=== PATIENT | female | born 1980 | race African-American/Black ===

== ENCOUNTER 2025-02-14 15:59 | Observation (INO) ==
--- NOTE | 2025-02-14 17:37 | Emergency Department Note ---
History of Present Illness General Chief complaint: Infection Stated complaint: INFECTION, REF BY Time Seen by Provider: 02/14/25 17:25 History of Present Illness Maximum Pain Intensity: 9 This is a 44-year-old female who presents to the emergency department via private vehicle with complaints of "infection, referred by ". The patient notes that she is experiencing right low back/flank pain. She relates this to the same pain she experienced when she had pyelonephritis. Patient notes that she was recently on 2 different antibiotics and is currently still on antibiotic for treatment of UTI. She notes fever at home 100.2 F. She notes she feels warm. She notes headache, neck pain and overall feeling some body aches. She denies any dysuria. Current pain 02/14. Home Medications Medication Instructions Recorded Confirmed Type Women's Probiotic Gummy 1 tab PO DAILY 11/09/24 02/14/25 History diazepam 2 mg tablet 2 mg PO BID PRN ANXIETY NEEDED 11/09/24 02/14/25 History ibuprofen 200 mg tablet (Advil) 400 - 600 mg PO DIRECTED PRN 11/09/24 02/14/25 History PAIN/FEVER magnesium oxide 200 mg PO DAILY 11/09/24 02/14/25 History norethindrone (contraceptive) 0.35 0.35 mg PO QDL #84 tabs 12/13/24 02/14/25 Rx mg tablet celecoxib 100 mg capsule (Celebrex) 100 mg PO BID #60 caps 02/12/25 02/14/25 Rx nitrofurantoin 100 mg PO Q12H 10 days #20 caps 02/12/25 02/14/25 Rx monohydrate/macrocrystals 100 mg capsule (Macrobid) Allergies Allergy/AdvReac Type Severity Reaction Status Date / Time No Known Allergies Allergy Verified 02/12/25 14:35 Past Med/Surg History Problem List (Updated 02/14/25 @ 21:51 by Antonio Brantley PA-C) Acute right-sided back pain (Acute) Duplicated collecting system Recurrent UTI (Acute) Medical History Hepatic cyst Pyelonephritis of right kidney Surgical History History of cystoscopy (08/2020) History of left breast biopsy cyst removal--benign History of wisdom tooth extraction History of colonoscopy S/P section 2016 Family History Aunt Breast cancer Aunt Breast cancer Mother Ovarian cancer Heart disease Hypertension Sister Brain cancer Uncle Brain cancer Lung cancer Other No family history of adverse response to anesthesia Denies family history of Prostate cancer Myocardial infarction Colorectal cancer Social History Smoking Status: Current every day smoker Tobacco Type: Cigarettes Age Started Using Tobacco: 15; packs per day: 1; Cigarettes Per Day: 1 (advised on policy); Second Hand Exposure: No (self); Do You Dip or Chew Tobacco: No; Hx Alcohol Use: No Hx Substance Use: No Preferred Language: Austrian Communication Ability: Effective Visual Impairment: No Limitations Hearing Ability: Normal Advisory Internship Required: No Beliefs That Will Affect Care: None marital status: Current Living Situation: Spouse current occupational status: employed 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 How many Children do You have: 1 Feels Safe at Home: Yes Childhood Exposure to Second-Hand Smoke: Yes Diet: regular caffeine: Yes during the past year weight has: remained stable Dental Care, Regularly: Yes Physical Activity Frequency: Daily Physical Activity Frequency Comment: busy life Seatbelt Use: always Sunscreen Use: Yes Assistive Devices: None Review of Systems A total of 10 systems reviewed and were otherwise negative Physical Exam Vital Signs Vital Signs - 24 hr 02/14/25 16:12 02/14/25 18:25 02/14/25 19:29 Temperature 36.3 C L Temperature Source Temporal Artery Scan Pulse Rate 88 Pulse Rate [Finger] 86 87 Respiratory Rate 18 16 16 Blood Pressure 117/74 Blood Pressure [Right Arm] 127/80 121/76 Blood Pressure Mean 88 Blood Pressure Mean [Right Arm] 95 91 Pulse Oximetry 100 100 97 Oxygen Delivery Method Room Air Room Air Sepsis Recent Fever Within 48 Hours Yes Sepsis New/Unexplained Change in Mental Status No Sepsis Action Taken by Nursing No Action Required 02/14/25 21:01 Temperature Temperature Source Pulse Rate Pulse Rate [Finger] 78 Respiratory Rate 16 Blood Pressure Blood Pressure [Right Arm] 118/69 Blood Pressure Mean Blood Pressure Mean [Right Arm] 85 Pulse Oximetry 100 Oxygen Delivery Method Room Air Sepsis Recent Fever Within 48 Hours Sepsis New/Unexplained Change in Mental Status Sepsis Action Taken by Nursing VITAL SIGNS - Vital signs and nursing notes were reviewed. Stable and afebrile. GENERAL - 44-year-old female appearing her stated age who is in no acute distress but appears to be in pain. Communicates well with provider and answers questions appropriately. SKIN - Without rashes. HEAD - NC/AT. EYES - Sclera anicteric. NECK - No nuchal rigidity. LUNGS - CTA CARDIAC - RRR ABDOMEN - Abdominal contour normal without pulsations or visible masses. BS normoactive all four quadrants. No tenderness, palpable masses, hepatosplenomegaly, or ascites noted. EXTREMITIES - No clubbing or peripheral cyanosis. +5/5 strength noted in UE/LE bilaterally. NEUROLOGIC - Cranial nerves II through XII grossly intact. PSYCH -alert, oriented and pleasant on exam Course Administered Medications Discontinued Medications Acetaminophen (Acetaminophen 325 Mg Tab) 650 mg PO NOW STA Stop: 02/14/25 18:38 Last Admin: 02/14/25 18:43 Dose: 650 mg Documented By: VIVEK Sodium Chloride (Nss) 1,000 mls @ 999 mls/hr IV .Q1H1M ONE Stop: 02/14/25 19:37 Last Infusion: 02/14/25 20:01 Dose: Infused Documented By: Admin: 02/14/25 18:45 Dose: 999 mls/hr Documented By: VIVEK Ceftriaxone Sodium (Rocephin) 2,000 mg in 50 mls @ 100 mls/hr IV NOW STA Stop: 02/14/25 20:08 Last Infusion: 02/14/25 21:22 Dose: Infused Documented By: Admin: 02/14/25 20:04 Dose: 100 mls/hr Documented By: RIKI Ioversol (Optiray 320 100ml) 90 ml IV ONCE ONE Stop: 02/14/25 20:55 Last Admin: 02/14/25 20:54 Dose: 90 ml Documented By: XIOMARA Medical Decision Making Laboratory Data 02/14/25 17:07 02/14/25 17:07 Lab Results 02/14/25 02/14/25 02/14/25 Range/Units 17:07 17:16 18:33 WBC 16.25 H (4.8-10.8) K/ul RBC 4.36 (4.20-5.40) M/uL Hgb 13.3 (12.0-16.0) g/dl Hct 40.3 (37.0-47.0) % MCV 92.4 (80.0-100.0) fL MCH 30.5 (25.0-34.0) pg MCHC 33.0 (32.0-36.0) g/dL RDW Std Deviation 41.1 (36.4-46.3) fL RDW Coeff of Sophie 12.1 (11.5-14.5) % Plt Count 252 (130-400) K/uL MPV 10.3 (9.4-12.4) fL Immature Gran % (Auto) 0.4 % Neut % (Auto) 87.8 % Lymph % (Auto) 5.8 % [place] % (Auto) 3.5 % Eos % (Auto) 2.2 % Baso % (Auto) 0.3 % Neut # (Auto) 14.27 H (1.40-6.50) K/uL Lymph # (Auto) 0.95 L (1.20-3.40) K/uL [place] # (Auto) 0.57 (0.11-0.59) K/uL Eos # (Auto) 0.35 (0.00-0.50) K/uL Baso # (Auto) 0.05 (0.00-0.20) K/uL Immature Gran # (Auto) 0.06 (0.01-0.20) K/uL Sodium 135 L (136-145) mmol/L Potassium 4.0 (3.5-5.1) mmol/L Chloride 102 (98-107) mmol/L Carbon Dioxide 25 (21-32) mmol/L Anion Gap 8 (3-11) BUN 13 (6-23) mg/dl Creatinine 0.80 (0.6-1.2) mg/dl Est Cr Clr Drug Dosing 83.6 ml/min eGFR 91.97 BUN/Creatinine Ratio 16.3 (10-20) Glucose 105 H (70-99(Fasting)) mg/dl Lactate 0.7 (0.4-2.0) mmol/L Calcium 9.3 (8.6-10.3) mg/dl Total Bilirubin 0.8 (0.2-1.0) mg/dl AST 18 (13-39) U/L ALT 12 (7-52) U/L Alkaline Phosphatase 41 (34-104) U/L Total Protein 7.7 (6.0-8.3) gm/dl Albumin 4.7 (3.4-5.0) gm/dl Globulin 3.0 (2.5-4.0) gm/dl Albumin/Globulin Ratio 1.6 (0.9-2) Procalcitonin 0.09 (0-0.5) ng/ml Urine Color Urine Appearance (Clear) Urine pH (4.5-7.5) Ur Specific House (1.000-1.030) Urine Protein (Negative) Urine Glucose (UA) (Negative) Urine Ketones (Negative) Urine Blood (Negative) Urine Nitrite (Negative) Urine Bilirubin (Negative) Urine Urobilinogen (Negative) Ur Leukocyte Esterase (Negative) Urine Test (Negative) Urine Comment Anaplasma Smear See Comment Lyme Disease Screen Negative (Negative) SARS-CoV-2 (PCR) NEGATIVE (Negative) Influenza Type A (PCR) Negative (Neg) Influenza Type B (PCR) Negative (Neg) RSV (RT-PCR) Negative (Neg) 02/14/25 Range/Units 18:53 WBC (4.8-10.8) K/ul RBC (4.20-5.40) M/uL Hgb (12.0-16.0) g/dl Hct (37.0-47.0) % MCV (80.0-100.0) fL MCH (25.0-34.0) pg MCHC (32.0-36.0) g/dL RDW Std Deviation (36.4-46.3) fL RDW Coeff of Sophie (11.5-14.5) % Plt Count (130-400) K/uL MPV (9.4-12.4) fL Immature Gran % (Auto) % Neut % (Auto) % Lymph % (Auto) % [place] % (Auto) % Eos % (Auto) % Baso % (Auto) % Neut # (Auto) (1.40-6.50) K/uL Lymph # (Auto) (1.20-3.40) K/uL Y[place] # (Auto) (0.11-0.59) K/uL Eos # (Auto) (0.00-0.50) K/uL Baso # (Auto) (0.00-0.20) K/uL Immature Gran # (Auto) (0.01-0.20) K/uL Sodium (136-145) mmol/L Potassium (3.5-5.1) mmol/L Chloride (98-107) mmol/L Carbon Dioxide (21-32) mmol/L Anion Gap (3-11) BUN (6-23) mg/dl Creatinine (0.6-1.2) mg/dl Est Cr Clr Drug Dosing ml/min eGFR BUN/Creatinine Ratio (10-20) Glucose (70-99(Fasting)) mg/dl Lactate (0.4-2.0) mmol/L Calcium (8.6-10.3) mg/dl Total Bilirubin (0.2-1.0) mg/dl AST (13-39) U/L ALT (7-52) U/L Alkaline Phosphatase (34-104) U/L Total Protein (6.0-8.3) gm/dl Albumin (3.4-5.0) gm/dl Globulin (2.5-4.0) gm/dl Albumin/Globulin Ratio (0.9-2) Procalcitonin (0-0.5) ng/ml Urine Color Yellow Urine Appearance Clear (Clear) Urine pH 6.0 (4.5-7.5) Ur Specific House 1.003 (1.000-1.030) Urine Protein Negative (Negative) Urine Glucose (UA) Negative (Negative) Urine Ketones 1+ H (Negative) Urine Blood Negative (Negative) Urine Nitrite Negative (Negative) Urine Bilirubin Negative (Negative) Urine Urobilinogen Negative (Negative) Ur Leukocyte Esterase Negative (Negative) Urine Test Negative (Negative) Urine Comment Anaplasma Smear Lyme Disease Screen (Negative) SARS-CoV-2 (PCR) (Negative) Influenza Type A (PCR) (Neg) Influenza Type B (PCR) (Neg) RSV (RT-PCR) (Neg) Imaging Data Radiologist's Impression: Renal Ultrasound 02/14/25 17:39 Clinical history: Right flank pain Technique: Renal sonography was performed Findings: The kidneys are of normal size and echogenicity. The right kidney measures 10.9 cm in length and the left kidney measures 11.1 cm in length. There is no hydronephrosis or visualized hydroureter. No definite renal calculus or mass is seen. There is a 1 cm right renal cyst The urinary bladder has a pre-voiding volume of 359 cc with 31 cc of postvoid residual. Bilateral ureteral jets were seen. Impression: Small right renal cyst Electronically signed by Rakan Hinds 02-14-2025 6:54 PM EXAM: CT Abdomen and Pelvis With Intravenous Contrast CLINICAL HISTORY: Reason for exam: R flank pain/back pain, hx pyelonephritis. TECHNIQUE: Axial computed tomography images of the abdomen and pelvis with intravenous contrast. CTDI is 13 mGy and DLP is 621 mGy-cm. Automated exposure control was utilized for the study. A dose lowering technique was utilized adhering to the principles of ALARA. CONTRAST: Patient received 90 cc opti 320 of IV contrast COMPARISON: No relevant prior studies available. FINDINGS: Lung bases: Unremarkable. ABDOMEN: Liver: Unremarkable. No mass. Gallbladder and bile ducts: Contracted gallbladder. No calcified stones. No ductal dilation. Pancreas: Unremarkable. No mass. No ductal dilation. Spleen: Unremarkable. No splenomegaly. Adrenals: Unremarkable. No mass. Kidneys and ureters: Symmetric renal enhancement. No hydronephrosis. No CT evidence of pyelonephritis. Subcentimeter right renal cyst; no follow-up indicated. Stomach and bowel: No bowel obstruction. Increased colonic stool suggesting constipation. No mechanical bowel obstruction. No mucosal thickening. PELVIS: Appendix: Normal appendix. Bladder: Unremarkable. No mass. Reproductive: Unremarkable as visualized. ABDOMEN and PELVIS: Intraperitoneal space: Unremarkable. No free fluid or free air. Bones/joints: No acute fracture. No dislocation. Soft tissues: Unremarkable. Vasculature: Unremarkable. No abdominal aortic aneurysm. Lymph nodes: Unremarkable. No enlarged lymph nodes. IMPRESSION: Increased colonic stool suggesting constipation. Radiologist: Gustavo Hernandez M.D. Electronically Signed: 02/14/25 21:46 [facility] Narrative Patient was seen and evaluated as above in the [facility] area followed by room A10. Review was performed of nursing notes and vital signs. I did review pertinent previous visits and patient history. After obtaining a thorough history and physical examination the above work up was performed. Patient presents to us today for evaluation of right flank/low back pain with associated body aches and fever. The patient is afebrile on arrival but notes fever at home. She states these symptoms are identical to when she had pyelonephritis earlier this year. I did review that visit and the patient did have pyelonephritis by CT imaging. Patient did note she did well with IV antibiotics. Options of care were discussed with the patient. IV access was established. Labs were drawn. There is leukocytosis 16.25. No anemia. Mild hyponatremia 135. No evidence of kidney or liver failure. Procalcitonin within normal range making sepsis less likely. Lactate within normal range as well. Urinalysis without evidence of UTI. RSV, influenza and COVID testing negative. Lyme screen negative. Anaplasma/Babesia smear negative. Send out DNA testing for Anaplasma Babesia currently pending. I did order IV ceftriaxone for coverage of the upper urinary tract despite urine findings here today noting the patient's symptoms and presentation with associated leukocytosis. Ultrasound of the renal area overall negative for acute process, there is note of a small right renal cyst. Case discussed with the hospitalist service. Hospitalist service did recommend a CT scan of the abdomen/pelvis. This was added after reviewing benefit versus risk with the patient. Result as above. Findings suggest constipation however I do not believe this is causing the patient's febrile state and leukocytosis. GCS: 15 In the evaluation and treatment of this patient the following differential diagnoses were entertained: UTI, pyelonephritis, diverticulitis, acute cholecystitis, pancreatitis, among others Impression & Plan Recurrent UTI, Acute right-sided back pain Discharge Plan Visit Data Chief Complaint: Infection Stated Complaint: INFECTION, REF BY ED Provider: Milo Graham ED Midlevel Provider: Antonio Brantley Discharge Problem: Recurrent UTI, Acute right-sided back pain Patient Disposition: Admitted As Inpatient Condition: Good Forms Stand Alone Forms: [facility] Prescriptions Prescriptions: No Action norethindrone (contraceptive) 0.35 mg tablet 0.35 mg PO QDL Qty: 84 1RF Rx Instructions: start day 1 of menstrual cycle nitrofurantoin monohyd/m-cryst [Macrobid] 100 mg capsule 100 mg PO Q12H 10 Days Qty: 20 0RF Rx Instructions: must administer with a meal/food celecoxib [Celebrex] 100 mg capsule 100 mg PO BID Qty: 60 5RF diazepam 2 mg tablet 2 mg PO BID PRN (Reason: ANXIETY NEEDED) ibuprofen [Advil] 200 mg Tablet 400 - 600 mg PO DIRECTED PRN (Reason: PAIN/FEVER) magnesium oxide 200 mg magnesium Tablet,Chewable 200 mg PO DAILY Women's Probiotic Gummy 1 tab PO DAILY Referrals Referrals: Dany Albert III, CRNP [Primary Care Provider] -
[2025-02-14 17:54] LABS: Hematocrit (blood only) 40.3 % (37.0-47.0); Hemoglobin 13.3 g/dl (12.0-16.0); Immature Granulocytes # (auto) 0.06 K/uL (0.01-0.20); Immature Granulocytes % (auto) 0.4 %; Mean Corpuscular Hemoglobin 30.5 pg (25.0-34.0); Mean Corpuscular Volume 92.4 fL (80.0-100.0); Platelet Count 252 K/uL (130-400); RDW Standard Deviation 41.1 fL (36.4-46.3); Red Blood Count 4.36 M/uL (4.20-5.40); White Blood Count 16.25 K/ul (4.8-10.8)
[2025-02-14 18:08] LABS: Influenza A virus by PCR Negative (Neg); Influenza B virus by PCR Negative (Neg); SARS CoV2 RNA(COVID-19) Ceph NEGATIVE (Negative)
[2025-02-14 18:10] LABS: Alanine Aminotransferase 12.0 U/L (7-52); Albumin Globulin Ratio 1.6 (0.9-2); Alkaline Phosphatase 41.0 U/L (34-104); Anion Gap 8.0 (3-11); Bilirubin,Total 0.8 mg/dl (0.2-1.0); Blood Urea Nitrogen 13.0 mg/dl (6-23); Calcium 9.3 mg/dl (8.6-10.3); Carbon Dioxide 25.0 mmol/L (21-32); Chloride 102.0 mmol/L (98-107); Creatinine Clr Calc Pharmacy 83.6 ml/min; Globulin 3.0 gm/dl (2.5-4.0); Glucose 105.0 mg/dl (70-99(Fasting)); Potassium 4.0 mmol/L (3.5-5.1); Sodium 135.0 mmol/L (136-145); Total Protein 7.7 gm/dl (6.0-8.3)
[2025-02-14 18:34] LABS: Procalcitonin 0.09 ng/ml (0-0.5)
[2025-02-14] MEDS: ACETAMINOPHEN 325 MG TAB PO STA (18:43)
[2025-02-14] MEDS: SODIUM CHLORIDE 0.9% 1,000 ML IV ONE (18:45)
--- NOTE | 2025-02-14 18:55 | Ultrasound Report ---
Clinical history: Right flank pain Technique: Renal sonography was performed Findings: The kidneys are of normal size and echogenicity. The right kidney measures 10.9 cm in length and the left kidney measures 11.1 cm in length. There is no hydronephrosis or visualized hydroureter. No definite renal calculus or mass is seen. There is a 1 cm right renal cyst The urinary bladder has a pre-voiding volume of 359 cc with 31 cc of postvoid residual. Bilateral ureteral jets were seen. Impression: Small right renal cyst Electronically signed by Rakan Hinds 02-14-2025 6:54 PM
[2025-02-14 18:59] LABS: Lyme Screen Rflx Confirmation Negative (Negative)
[2025-02-14 19:08] LABS: Appearance Urine Clear (Clear); Glucose Urine UA Negative (Negative)
[2025-02-14] MEDS: cefTRIAXone SODIUM 2,000 MG/50 ML BAG IV STA (20:04)
--- NOTE | 2025-02-14 20:40 | History & Physical Report ---
"Date of Service February 14, 2025 Assessment & Plan (1) Recurrent UTI: Plan 44 y.o female with pmh of pyelonephritis, recurrens UTI, renal and liver cyst that presents to the ED due to right flank pain, lower abdomen pain, chills. She is currently being treated with Nitrofurantoin for UTI outpatient, this was extended due to recurrent symptoms by PCP on 02/12. Patient found with leukocytosis. Patient will be admitted for IV antibiotics and further work up #Right flank pain | UTI | Possible Pyelonephritis - Patient with symptoms of fever, frequency, lower abdominal pain and flank pain. Lab remarkable for leukocytosis - Abdomen/ Pelvis Ct ordered on admission - IV ceftriaxone given in ED, will continue - Urine negative, will sent for Urine culture. Patient had normal UA but positive urine culture with pansensitive E. coli in the past - Pending blood culture - continue IV Ceftriaxone - She has history of recurrent UTI and Pyelonephritis, should follow up with urology outpatient. Referred by PCP today - Labs AM #right knee pain - continue Tylenol as needed - will order topical Voltaren #anxiety Home Valium as needed # contraceptive continue home norethindrone DVT prophylaxis: low risk, ambulation Dispo: Med surge History of Present Illness Primary Care Provider: Dany Albert III, DELFINO 44 y.o female with PMH of pyelonephritis, recurrens UTI, renal and liver cyst that presents to the ED due to right flank pain, lower abdomen pain, chills. She is currently being treated with Nitrofurantoin for UTI outpatient, this was extended due to recurrent symptoms by PCP on 02/12. She states last night and this morning she had pain on her right flank, lower abdomen and neck. She believed this is a similar symptoms from last time she was diagnosed with Pyelonephritis. She denied any chest pain, SOB, nausea, vomiting, diarrhea. She states some frequency and dysuria. Ed course: IV Ceftriaxone, IV 1 L NSS Allergies Allergy/AdvReac Type Severity Reaction Status Date / Time No Known Allergies Allergy Verified 02/12/25 14:35 Home Medications Medication Instructions Recorded Confirmed Type Women's Probiotic Gummy 1 tab PO DAILY 11/09/24 02/14/25 History diazepam 2 mg tablet 2 mg PO BID PRN ANXIETY NEEDED 11/09/24 02/14/25 History ibuprofen 200 mg tablet (Advil) 400 - 600 mg PO DIRECTED PRN 11/09/24 02/14/25 History PAIN/FEVER magnesium oxide 200 mg PO DAILY 11/09/24 02/14/25 History norethindrone (contraceptive) 0.35 0.35 mg PO QDL #84 tabs 12/13/24 02/14/25 Rx mg tablet celecoxib 100 mg capsule (Celebrex) 100 mg PO BID #60 caps 02/12/25 02/14/25 Rx nitrofurantoin 100 mg PO Q12H 10 days #20 caps 02/12/25 02/14/25 Rx monohydrate/macrocrystals 100 mg capsule (Macrobid) Past Med/Surg History Problem List (Updated 02/14/25 @ 23:25 by Gianna Nesbitt) Acute right-sided back pain (Acute) Duplicated collecting system Recurrent UTI (Acute) Medical History Hepatic cyst Pyelonephritis of right kidney Surgical History History of cystoscopy (08/2020) History of left breast biopsy cyst removal--benign History of wisdom tooth extraction History of colonoscopy S/P section 2015 Family History Aunt Breast cancer Aunt Breast cancer Mother Ovarian cancer Heart disease Hypertension Sister Brain cancer Uncle Brain cancer Lung cancer Other No family history of adverse response to anesthesia Denies family history of Prostate cancer Myocardial infarction Colorectal cancer Social History Smoking Status: Current every day smoker Tobacco Type: Cigarettes and E-cigarettes / Vaping Age Started Using Tobacco: 15; packs per day: 1; Cigarettes Per Day: 1; Second Hand Exposure: Yes; Do You Dip or Chew Tobacco: No; Tobacco Cessation Education Requested by Patient: No Hx Alcohol Use: No Hx Substance Use: No Preferred Language: Lithuanian Communication Ability: Effective Visual Impairment: No Limitations Hearing Ability: Normal 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 Beliefs That Will Affect Care: None marital status: Current Living Situation: Spouse current occupational status: employed 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 How many Children do You have: 1 Other Information That Helps Us Care for You: No Feels Safe at Home: Yes Safety Concerns: Feels Safe At This Time Childhood Exposure to Second-Hand Smoke: Yes Diet: regular caffeine: Yes during the past year weight has: remained stable Dental Care, Regularly: Yes Physical Activity Frequency: Daily Physical Activity Frequency Comment: busy life Seatbelt Use: always Sunscreen Use: Yes Assistive Devices: Glasses Review of Systems Review of Systems: as per hpi Physical Exam Constitutional: WD/WN, vitals as above Eyes: PERRL, conjunctivae normal, anicteric sclerae Respiratory: normal respiratory effort, lungs clear to auscultation Cardiovascular: RRR, no murmur, no edema Gastrointestinal (Abdomen): Percussion/Palpation: + abdomen tender and abdomen soft; no guarding and abdomen not rigid CVA tenderness on right flank, suprapubic tenderness Skin: no rashes, warm and dry Results & Data Results & Data Vital Signs (Past 12 Hours) Vital Signs Temp Pulse Pulse Resp BP BP Pulse Ox 02/14/25 19:29 87 16 121/76 97 02/14/25 18:25 86 16 127/80 100 02/14/25 16:12 36.3 C L 88 18 117/74 100 O2 Del Method 02/14/25 19:29 Room Air 02/14/25 18:25 Room Air 02/14/25 16:12 Code Status & VTE Plan VTE Prophylaxis Plan VTE Prophylaxis will be ordered: Yes Supervising Physician Co-Signing Physician Notes Attending addendum: I have physically seen this patient, have supervised the medical residents activities, and agree with the H&P unless as otherwise noted. Assessment and Plan: The patient is a 44-year-old female with past medical history including pyelonephritis, recurrent UTI, renal and liver cysts, dual collecting system, and anxiety. She presents to the emergency department as a failure of outpatient treatment for UTI with nitrofurantoin. The dosing was reportedly extended by her PCP on 02/12. Patient is referred to the [facility] Hospitalist service for inpatient treatment on IV antibiotics. Urine culture on 01/31/2025 grew pansensitive E. coli was drawn and is pending for this admission. Urinary tract infection/possible pyelonephritis/failure of outpatient treatment with nitrofurantoin- CT scan from 11/29/2024 showed right pyelonephritis CT scan from 01/13/2024 was negative Renal ultrasound today with negative for pyelo Follow urine culture and sensitivities Previous urine culture and sensitivity from 01/31 showed pansensitive E. coli. For future reference this patient should not be treated with nitrofurantoin Ceftriaxone 2 g IV every 24 hours Status post 1 L normal saline bolus in the ED Maintenance fluids: NSS at 80 mL/h x 1 L Infection workup- Treat urinary tract infection as noted above Negative for COVID, flu, RSV Tick panel negative for Lyme Anaplasmosis smear is negative, babesiosis smear is pending Resident Activity Tracking Resident Involvement: Resident Care Provided Care Provided: Adult Hospital Medicine"
[2025-02-14] MEDS: OPTIRAY 320 100ml IV ONE (20:54)
--- NOTE | 2025-02-14 21:47 | CT Scan Report ---
Exam(s): CT ABDOMEN + PELVIS With Contrast IV Amt: 90 cc opti 320 EXAM: CT Abdomen and Pelvis With Intravenous Contrast CLINICAL HISTORY: Reason for exam: R flank pain/back pain, hx pyelonephritis. TECHNIQUE: Axial computed tomography images of the abdomen and pelvis with intravenous contrast. CTDI is 13 mGy and DLP is 621 mGy-cm. Automated exposure control was utilized for the study. A dose lowering technique was utilized adhering to the principles of ALARA. CONTRAST: Patient received 90 cc opti 320 of IV contrast COMPARISON: No relevant prior studies available. FINDINGS: Lung bases: Unremarkable. ABDOMEN: Liver: Unremarkable. No mass. Gallbladder and bile ducts: Contracted gallbladder. No calcified stones. No ductal dilation. Pancreas: Unremarkable. No mass. No ductal dilation. Spleen: Unremarkable. No splenomegaly. Adrenals: Unremarkable. No mass. Kidneys and ureters: Symmetric renal enhancement. No hydronephrosis. No CT evidence of pyelonephritis. Subcentimeter right renal cyst; no follow-up indicated. Stomach and bowel: No bowel obstruction. Increased colonic stool suggesting constipation. No mechanical bowel obstruction. No mucosal thickening. PELVIS: Appendix: Normal appendix. Bladder: Unremarkable. No mass. Reproductive: Unremarkable as visualized. ABDOMEN and PELVIS: Intraperitoneal space: Unremarkable. No free fluid or free air. Bones/joints: No acute fracture. No dislocation. Soft tissues: Unremarkable. Vasculature: Unremarkable. No abdominal aortic aneurysm. Lymph nodes: Unremarkable. No enlarged lymph nodes. IMPRESSION: Increased colonic stool suggesting constipation. Electronically signed by: Gustavo Hernandez M.D. 02/14/25 21:46 PM
[2025-02-14] MEDS ORDERED: ONDANSETRON INJ 2 MG/ML 2 ML VIAL IV PRN (23:25)
[2025-02-14] MEDS ORDERED: MELATONIN 3 MG TAB PO PRN (23:25)
[2025-02-14] MEDS ORDERED: POLYETHYLENE (MIRALAX) 17 GM PACK PO PRN (23:25)
[2025-02-15] MEDS: DICLOFENAC SOD 1% GEL 100 GM TUBE EXT SCH (01:07)
--- NOTE | 2025-02-15 07:14 | Billing Data ---
Date of Service February 15, 2025 Coding Level of Care Code 31904 INT INP/OBS CARE
[2025-02-15] MEDS: SODIUM CHLORIDE 0.9% 1,000 ML IV SCH (07:15)
[2025-02-15] MEDS: ACETAMINOPHEN 325 MG TAB PO PRN (07:30)
[2025-02-15 07:38] LABS: Hematocrit (blood only) 33.0 % (37.0-47.0); Hemoglobin 11.2 g/dl (12.0-16.0); Immature Granulocytes # (auto) 0.01 K/uL (0.01-0.20); Immature Granulocytes % (auto) 0.1 %; Mean Corpuscular Hemoglobin 31.6 pg (25.0-34.0); Mean Corpuscular Volume 93.2 fL (80.0-100.0); Platelet Count 217 K/uL (130-400); RDW Standard Deviation 42.1 fL (36.4-46.3); Red Blood Count 3.54 M/uL (4.20-5.40); White Blood Count 7.61 K/ul (4.8-10.8)
[2025-02-15 07:53] LABS: Anion Gap 4.0 (3-11); Blood Urea Nitrogen 9.0 mg/dl (6-23); Calcium 8.2 mg/dl (8.6-10.3); Carbon Dioxide 28.0 mmol/L (21-32); Chloride 108.0 mmol/L (98-107); Creatinine Clr Calc Pharmacy 92.9 ml/min; Glucose 89.0 mg/dl (70-99(Fasting)); Potassium 4.2 mmol/L (3.5-5.1); Sodium 140.0 mmol/L (136-145)
[2025-02-15 09:54] LABS: Alanine Aminotransferase 9.0 U/L (7-52); Alkaline Phosphatase 27.0 U/L (34-104); Bilirubin,Total 0.7 mg/dl (0.2-1.0); Total Protein 6.0 gm/dl (6.0-8.3)
--- NOTE | 2025-02-15 16:10 | Hospitalist Progress Note ---
Date of Service February 15, 2025 Assessment & Plan (1) Recurrent UTI: Plan 44 y.o female with pmh of pyelonephritis, recurrens UTI, renal and liver cyst that presents to the ED due to right flank pain, lower abdomen pain, chills. She is currently being treated with Nitrofurantoin for UTI outpatient, this was extended due to recurrent symptoms by PCP on 02/12. Patient found with leukocytosis. Failure of outpatient antibiotics. Admitted for IV antibiotics #Right flank pain | UTI | Possible Pyelonephritis WBC trend: 16 -> 7 Clinically, patient presented with symptoms of fever, urinary frequency, lower abdominal pain and right lower back pain A/P CT revealed increased colonic stool suggesting constipation No mention of pyelonephritis or ascending UTI, however patient does present similar to her prior episodes of right sided pyelonephritis Urine negative (in the setting of recent Macrobid use). Will send for Urine culture. Patient had normal UA but positive urine culture with pansensitive E. coli in the past Urine cx with no growth glomeruli on 02/15 Blood cultures with NGTD Continue IV ceftriaxone #Elevated eosinophils | ?GERD Patient reported new onset of hoarseness, and GERD like symptoms on 02/15 She also reports lightheadedness and ongoing low-grade fevers CXR ordered, pending No prior history of asthma COVID, flu, RSV negative Lyme negative; tickborne panel still pending ? Eosinophilic esophagitis If refractory to the above treatments, could add on full respiratory BioFire #Right knee pain Continue Tylenol PRN Continue Voltaren PRN Patient recently had an x-ray of her right knee which revealed osteoarthritis If refractory to the above treatments, could consider additional imaging #Anxiety Home Valium as needed #Contraception continue home norethindrone Disposition: Continue to be on MedSurg Admission and Anticipated Discharge Date Admission Date: February 14, 2025 Supervising Physician Co-Signing Physician Notes Attending Attestation - Chart reviewed, care plan d/w ALEXIA Roblero. I agree w/ the marie components of his documentation. Damian Menendez MD Subjective Mrs. Gentile reports the pain in her right lower back is "much better" today compared to yesterday. At present, she rates the pain in her right lower back is a 2 out of 10, whereas yesterday it got up to a 9 out of 10. Her last bowel movement was yesterday around 1230. Prior to her current constipation, she denies any diarrhea in the past week. No prior history of kidney stones. Patient reports that she took a full course of Macrobid last week x 5 days, but then her symptoms returned, and she felt that her urine was still "cloudy". She took 2 additional tablets of Macrobid, before coming into the hospital. Patient denies history of gallbladder issues, but does get a liver MRI every year; she cannot name the condition for why she gets the liver MRI yearly. Patient denies any alcohol use within the past week. In addition to nausea, her main concerns at this time includes significant right knee pain which she rates a 9 out of 10. While she has had problems with her right knee for 15 years, she has had an acute exacerbation within the past month. Worse when bearing weight on her right knee. Additionally, she reports she has had a hoarse voice today, as well as lightheadedness, dizziness, headache, and feeling hot/sweaty. No reported fevers today, however she did have a low-grade fever of 100 Grease Fahrenheit prior to her hospital arrival. Patient also expresses concerns regarding her reported high eosinophilia count. She denies prior history of asthma/allergies. She denies any recent tick bites. However patient does [place], and she was around a coworker who was sick this past week (who reportedly got it from her child). ROS: Patient endorses sweating, low-grade fever, nausea, hoarse voice, lightheadedness, dizziness, headache, right lower back pain. Patient denies vomiting, blood in her stool, cough, or chest pain. Review of Systems Review of Systems: See HPI above Physical Exam Physical Exam: General: no acute distress; pleasant affect; hoarse voice; non-toxic appearing; well-nourished; cooperative; SpO2 100% on RA HEENT: normocephalic, atraumatic; no scleral icterus; PERRLA; vision and hearing grossly intact Neck: supple; no lymphadenopathy; trachea midline; back of patient's neck is diaphoretic and hot to touch Skin: warm,, diaphoretic; no cyanosis; no rashes, bruising, lesions, or erythema noted CV: chest wall NTP; RRR; S1/S2 normal; no murmurs/rubs/gallops; pulses intact a nd symmetric at radial, DP, and PT Lungs: no acute respiratory distress; symmetrical chest wall expansion; clear breath sounds across all lung mora w/o adventitious sounds; no wheezing ABD: Soft, mildly TTP in the right upper quadrant; otherwise NTP remaining quadrants; BS present; no rebound/guarding; no distention Back: Mild right sided CVA tenderness MSK: no tics or fasciculations; no edema noted in the LEs b/l, nonerythematous Neuro: A&Ox3; normal mood and affect; fluent speech; no focal deficits; sensation intact symmetric in lower extremity bilaterally Results & Data Results & Data Vital Signs (Past 12 Hours) Vital Signs Temp Pulse Resp BP BP Pulse Ox O2 Del Method 02/15/25 16:00 36.7 C 64 18 116/74 100 Room Air 02/15/25 14:29 36.7 C 65 18 110/71 98 Room Air 02/15/25 07:31 36.7 C 57 L 16 99/63 L 99 Room Air 02/15/25 07:15 Room Air PG Care Time/CCT Total # of Minutes Spent Total Time Spent with Patient: Total time spent is greater than 50% in coordination of care (as documented) at patient's floor/unit and/or counseling patient: Coding [place] [address] SUB INP/OBS CARE 3/50MIN Patient Type Established Medical Decision Making High Complexity Diagnoses Recurrent UTI N39.0
--- NOTE | 2025-02-15 18:37 | XRay Report ---
Clinical History: Chest pain Technique: PA and lateral views of the chest were obtained Findings: There are no confluent pulmonary infiltrates. The heart size is within normal limits. No pleural effusion or pneumothorax is seen. There is no definite pulmonary nodule. No fracture is noted. No foreign body is seen Impression: No active disease Electronically signed by Rakan Hinds 02-15-2025 6:36 PM
[2025-02-15] MEDS: cefTRIAXone SODIUM 1,000 MG/50 ML BAG IV SCH (19:42)
[2025-02-16 10:06] LABS: Hematocrit (blood only) 34.9 % (37.0-47.0); Hemoglobin 11.1 g/dl (12.0-16.0); Immature Granulocytes # (auto) 0.01 K/uL (0.01-0.20); Immature Granulocytes % (auto) 0.2 %; Mean Corpuscular Hemoglobin 30.3 pg (25.0-34.0); Mean Corpuscular Volume 95.4 fL (80.0-100.0); Platelet Count 215 K/uL (130-400); RDW Standard Deviation 43.2 fL (36.4-46.3); Red Blood Count 3.66 M/uL (4.20-5.40); White Blood Count 5.48 K/ul (4.8-10.8)
[2025-02-16 10:22] LABS: Anion Gap 5.0 (3-11); Blood Urea Nitrogen 9.0 mg/dl (6-23); Calcium 8.4 mg/dl (8.6-10.3); Carbon Dioxide 27.0 mmol/L (21-32); Chloride 107.0 mmol/L (98-107); Creatinine Clr Calc Pharmacy 98.4 ml/min; Glucose 108.0 mg/dl (70-99(Fasting)); Potassium 3.8 mmol/L (3.5-5.1); Sodium 139.0 mmol/L (136-145)
[2025-02-16 10:59] VITALS: RESP 18; O2SAT 100
[2025-02-16] MEDS: FAMOTIDINE 20 MG TAB PO ONE (11:35)
[2025-02-16] MEDS: [UNRECOGNIZED DRUG - OTHER] PO SCH (11:36)
[2025-02-16 12:05] VITALS: BP 125/73; PULSE 59; TEMP 97.5
[2025-02-16 12:13] LABS: Thyroid Stimulating Hormone 1.779 uIu/ml (0.300-4.500)
[2025-02-16 12:38] LABS: Chlamydia pneumoniae PCR Not Detected (NotDetected); Coronavirus 229E PCR Not Detected (NotDetected); Coronavirus CoV-2 (COVID19)PCR Not Detected (NotDetected); Coronavirus HKU1 PCR Not Detected (NotDetected); Coronavirus NL63 PCR Not Detected (NotDetected); Coronavirus OC43PCR Not Detected (NotDetected); Human Metapneumovirus PCR Not Detected (NotDetected); Parainfluenza Virus 1 PCR Not Detected (NotDetected); Parainfluenza Virus 2 PCR Not Detected (NotDetected); Parainfluenza Virus 3 PCR Not Detected (NotDetected); Parainfluenza Virus 4 PCR Not Detected (NotDetected); Respiratory Syncytial VirusPCR Not Detected (NotDetected); Rhinovirus/Enterovirus PCR Not Detected (NotDetected)
--- NOTE | 2025-02-16 13:22 | Discharge Summary ---
Discharge Summary Date of Service February 16, 2025 Principal Dx & Hospital Course #1 = Principal Diagnosis (1) Recurrent UTI: Plan 44 y.o female with pmh of pyelonephritis, recurrens UTI, renal and liver cyst that presents to the ED due to right flank pain, lower abdomen pain, chills. She is currently being treated with Nitrofurantoin for UTI outpatient, this was extended due to recurrent symptoms by PCP on 02/12. Patient found with leukocytosis. Failure of outpatient antibiotics. Day of discharge 02/16: VSS; no recurrence of fever while hospitalized. While Mrs. Gentile reports that she woke up feeling "miserable" she reports that her symptoms have been improving throughout the day. She still feels diaphoretic at times, but has been up moving around and ambulate to the bathroom without difficulty. Her main concern today is the pain in her right knee; history of pain in her right knee for the past 15 years, with an acute exacerbation over the past month. No PMH of gout or Lyme disease. No recent injuries to the right knee. No history of prosthesis. Additionally, she has pain extending from her epigastric region up towards her throat, which she characterizes as an intermittent burning pain. Not exacerbated by eating. She denies prior history of GERD. She believes menopause may be contributing to her symptoms; last menstrual period 02/09/2025; she reports that her cycles have always been irregular; for instance, 1 cycle lasted lasted from November 02 - November 22 over the summer. She denies any prior history of issues with her thyroid. Her is able to drive her home from the hospital today if needed. ROS: Patient endorses lightheadedness, headache, mild right LBP (improving from prior), severe right knee pain (exacerbated by bearing weight), intermittent sweating, feeling feverish, intermittent chest palpitations, and reflux-like symptoms. Patient denies swelling or erythema around the right knee, chest pain, SOB, cough, vomiting, diarrhea, or change in urinary/bowel habits. #Right flank pain | UTI | Possible Pyelonephritis WBC trend: 16 -> 7 -> 5 Clinically, patient presented with symptoms of fever, urinary frequency, lower abdominal pain and right lower back pain A/P CT revealed increased colonic stool suggesting constipation No mention of pyelonephritis or ascending UTI, however patient does present similar to her prior episodes of right sided pyelonephritis Urine negative (in the setting of recent Macrobid use). Will send for Urine culture. Patient had normal UA but positive urine culture with pansensitive E. coli in the past Final urine culture drawn on 02/14 with no growth Blood cultures with NGTD x 48-hour Patient received IV ceftriaxone x 3 days Will plan to send patient home on amoxicillin 500 mg p.o. TID x 4 additional days #Elevated eosinophils | ?GERD v. Eosinophilic esophagitis Patient reported new onset of hoarseness, and GERD like symptoms on 02/15 She also reports lightheadedness and ongoing low-grade fevers CXR did not reveal any acute finding Respiratory viral panel negative Lyme negative; Anaplasma and babesiosis still pending at time of discharge Trial of famotidine and Protonix on 02/16; patient is unsure if these helped her symptoms, but does report she is beginning to feel better #Chest palpitations ? Potentially secondary to anxiety + increased stress in the setting of acute infection Patient declined repeat EKG prior to discharge If continues to recur, recommend that the patient touch base with her PCP regarding outpatient cardiac event monitoring Continue home Valium PRN #Right knee pain Patient denies any recent trauma to the right knee Clinically, no knee effusion is present; not erythematous or warm to touch; pain is localized at the distal lateral knee, more suggestive of degenerative lateral meniscus pain v. Osteoarthritis exacerbation Tylenol PRN Patient reported that Voltaren gel did not help while in the hospital Recent x-ray of her right knee on 02/12 minimal degenerative changes and no acute fractures Planning to start on celecoxib 100 mg p.o. twice daily upon discharge Recommended applying cold compress and ice to the joint PRN Patient does have a follow-up appoint with orthopedics on March 30, 2025 but we will try to move this up if possible If refractory to the above treatments, could consider MRI imaging as an #Contraception Continue home norethindrone Disposition: Discharge home Admission HPI Per Admitting Provider 44 y.o female with PMH of pyelonephritis, recurrens UTI, renal and liver cyst that presents to the ED due to right flank pain, lower abdomen pain, chills. She is currently being treated with Nitrofurantoin for UTI outpatient, this was extended due to recurrent symptoms by PCP on 02/12. She states last night and this morning she had pain on her right flank, lower abdomen and neck. She believed this is a similar symptoms from last time she was diagnosed with Pyelonephritis. She denied any chest pain, SOB, nausea, vomiting, diarrhea. She states some frequency and dysuria. Ed course: IV Ceftriaxone, IV 1 L NSS Admission Exam Per Admitting Provider Constitutional: WD/WN, vitals as above Eyes: PERRL, conjunctivae normal, anicteric sclerae Respiratory: normal respiratory effort, lungs clear to auscultation Cardiovascular: RRR, no murmur, no edema Gastrointestinal (Abdomen): Percussion/Palpation: + abdomen tender and abdomen soft; no guarding and abdomen not rigid CVA tenderness on right flank, suprapubic tenderness Skin: no rashes, warm and dry Discharge Exam General: no acute distress; pleasant affect; non-toxic appearing; well- nourished; cooperative; SpO2 100% on RA HEENT: normocephalic, atraumatic; no scleral icterus; PERRLA; vision and hearing grossly intact Neck: supple; no lymphadenopathy; trachea midline; back of patient's neck is diaphoretic and hot to touch Skin: warm,, diaphoretic; no cyanosis; no rashes, bruising, lesions, or erythema noted CV: chest wall NTP; RRR; S1/S2 normal; no murmurs/rubs/gallops; pulses intact and symmetric at radial, DP, and PT Lungs: no acute respiratory distress; symmetrical chest wall expansion; clear breath sounds across all lung mora w/o adventitious sounds; no wheezing ABD: Soft, mildly TTP in the right upper quadrant; otherwise NTP remaining quadrants; BS present; no rebound/guarding; no distention Back: Mild right sided CVA tenderness Right knee: atraumatic, without joint effusion appreciated; not warm to touch; no erythema; patient demonstrates ability to flex knee to 90 degree angle with minimal pain; right foot is neurovascular intact; popliteal surface NTP; anterior surface and deep; lateral/inferior knee is mildly TTP, otherwise largely NTP MSK: no tics or fasciculations; no edema noted in the LEs b/l, nonerythematous Neuro: A&Ox3; normal mood and affect; fluent speech; no focal deficits; sensation intact symmetric in lower extremity bilaterally Discharge Plan Discharge Items Patient Disposition: Home - Self-Care Reason For Visit: FEVER, PYELONEPHRITIS Discharge Diagnosis: UTI Condition on Discharge: Good Activity: Resume your previous activity Non-emergency contact: Primary Care Provider Call non-emergency contact if: you have any medication questions, your symptoms worsen, your pain is not controlled, your pain is worsening and your temperature is above 101.5 Follow-up/Referrals: Dany Albert III, CRNP [Primary Care Provider] - 02/26/25 4:00 pm Diet: Regular Addtl Attending Provider Instructions: You were hospitalized at [facility] from 02/14 - 02/16 for low- grade fever and right-sided flank pain in the setting of known UTI. While nitrofurantoin ("Macrobid") was trialed as an outpatient, due to recurrence of symptoms, it was felt that that was a failure of outpatient antibiotics. You were admitted to the hospital for IV antibiotics. While blood and urine cultures were taken on arrival, these did not grow any bacteria throughout your hospital stay. While your white blood cell count was elevated at 16 on arrival, but is currently back down to a normal range at time of discharge (normal reference range 5-11). Your vital signs have have also remained stable throughout your hospital stay. For these reasons, we feel that you are safe to be discharged home on oral antibiotics. New prescription sent to your pharmacy: - Amoxicillin 500 mg 3 times daily x 4 additional days Please take the full course of this antibiotic even if you begin to feel better. You reported that you have an upcoming appointment with urology on March 19. Regarding your right knee pain, it is suspected that this is due to an exacerbation of osteoarthritis vs. meniscal injury. It is recommended that you begin taking the anti-inflammatory medication recently prescribed by your PCP (celecoxib 100 mg by mouth twice daily). We also recommend that you ice your knee regularly whenever the pain begins to worsen. You reported that you have an upcoming orthopedics appointment on March 30; we will touch base with our case management team, and try to move up this appointment if possible. Please plan to follow-up with your PCP in the next 7 to 10 days for a transitional care appointment. If you develop any new or worsening symptoms, such as burning with urination, severe abdominal pain, intractable lower back pain, recurrent fevers, chest pain, difficulty breathing, or blood in your urine, please return to the Emergency Department immediately. It was a pleasure taking care of you. Please reach out any questions or concerns. Sincerely, The Hospital medicine team at [facility] Pending Studies at Discharge: No Stand-Alone Forms: My [facility] Medications and DC Order Prescriptions: New amoxicillin 500 mg capsule 500 mg PO TID 4 Days Qty: 12 0RF Rx Instructions: Take 1 capsule by mouth 3 times daily x 4 additional days Continued norethindrone (contraceptive) 0.35 mg tablet 0.35 mg PO QDL Qty: 84 1RF Rx Instructions: start day 1 of menstrual cycle celecoxib [Celebrex] 100 mg capsule 100 mg PO BID Qty: 60 5RF diazepam 2 mg tablet 2 mg PO BID PRN (Reason: ANXIETY NEEDED) ibuprofen [Advil] 200 mg Tablet 400 - 600 mg PO DIRECTED PRN (Reason: PAIN/FEVER) magnesium oxide 200 mg magnesium Tablet,Chewable 200 mg PO DAILY Women's Probiotic Gummy 1 tab PO DAILY Discontinued nitrofurantoin monohyd/m-cryst [Macrobid] 100 mg capsule 100 mg PO Q12H 10 Days Qty: 20 0RF Rx Instructions: must administer with a meal/food Discharge Orders: Discharge Order (Routine); Ordered 02/16/25 Ordered By: Jamar Roblero Admission Data Admit Date/Time: 02/14/25 20:38 Attending Provider: Damian Menendez Admit Provider: Leroy Pagan Primary Care Provider: Dany Albert III Other Providers: Remy Rodriguez Hospital Stay Data Consultations 02/14/25 19:53 ED Decision to Admit Stat Diagnostic Imagining Performed 02/14/25 17:39 US renal/blad retro comp Stat 02/14/25 20:21 CT abd pelvis IV con only Stat Discharge Instructions Given to Patient (Per Discharging Provider) You were hospitalized at [facility] from 02/14 - 02/16 for low- grade fever and right-sided flank pain in the setting of known UTI. While nitrofurantoin ("Macrobid") was trialed as an outpatient, due to recurrence of symptoms, it was felt that that was a failure of outpatient antibiotics. You were admitted to the hospital for IV antibiotics. While blood and urine cultures were taken on arrival, these did not grow any bacteria throughout your hospital stay. While your white blood cell count was elevated at 16 on arrival, but is currently back down to a normal range at time of discharge (normal reference range 5-11). Your vital signs have have also remained stable throughout your hospital stay. For these reasons, we feel that you are safe to be discharged home on oral antibiotics. New prescription sent to your pharmacy: - Amoxicillin 500 mg 3 times daily x 4 additional days Please take the full course of this antibiotic even if you begin to feel better. You reported that you have an upcoming appointment with urology on March 19. Regarding your right knee pain, it is suspected that this is due to an exacerbation of osteoarthritis vs. meniscal injury. It is recommended that you begin taking the anti-inflammatory medication recently prescribed by your PCP (celecoxib 100 mg by mouth twice daily). We also recommend that you ice your knee regularly whenever the pain begins to worsen. You reported that you have an upcoming orthopedics appointment on March 30; we will touch base with our case management team, and try to move up this appointment if possible. Please plan to follow-up with your PCP in the next 7 to 10 days for a transitional care appointment. If you develop any new or worsening symptoms, such as burning with urination, severe abdominal pain, intractable lower back pain, recurrent fevers, chest pain, difficulty breathing, or blood in your urine, please return to the Emergency Department immediately. It was a pleasure taking care of you. Please reach out any questions or concerns. Sincerely, The Hospital medicine team at [facility] Total Time Total Time Spent Total Time Spent (In Minutes): 45 Coding [place] [address] INP/OBS DISCH >30 MIN Patient Type Established Medical Decision Making Moderate Complexity Diagnoses Recurrent UTI N39.0
[2025-02-16] MEDS: cefTRIAXone SODIUM 1,000 MG/50 ML BAG IV STA (15:13)
--- NOTE | 2025-02-16 21:41 | Electrocardiogram Report ---
Test Reason : Blood Pressure : */* mmHG Vent. Rate : 88 BPM Atrial Rate : 88 BPM P-R Int : 148 ms QRS Dur : 86 ms QT Int : 360 ms P-R-T Axes : 56 51 51 degrees QTcB Int : 435 ms Normal sinus rhythm Possible Left atrial enlargement Borderline ECG When compared with ECG of 09-Nov-2024 15:40, Questionable change in QRS axis T wave inversion no longer evident in Inferior leads Confirmed by Espinoza Norwood ([id number]) on 02/16/2025 9:41:44 PM Referred By: Dany Albert Confirmed By: Espinoza Norwood
== END 2025-02-16 16:05 | disposition home or self-care (01) ==
LOC: 3N 15:59 → ED 15:59 → SUATTDRO 20:38 → 3N 22:49